=== PATIENT | male | born 1975 | race Hispanic/Latino ===

== ENCOUNTER 2017-11-18 11:34 | Emergency (ER) | payer SELFPAY ==
[2017-11-18] MEDS ORDERED: ASPIRIN 81 MG CHEWABLE TABLET ONE (14:35)
[2017-11-18] MEDS ORDERED: FAMOTIDINE 20 MG/2 ML VIAL IV ONE (14:36)
[2017-11-18] MEDS ORDERED: NA CHLORIDE 0.9% 1,000 ML ONE (14:36)
[2017-11-18] MEDS ORDERED: METOPROLOL TAR 50 MG TAB ONE (14:36)
[2017-11-18 15:21] LABS: Absolute Neutrophil 0.3 K/uL (1.8-8.0); Basophils % 1.5 % (0-1.3); Eosinophils % 0.4 % (0-4.4); Hematocrit 26.4 % (39.6-49.0); Lymphocytes % 91.5 % (15.3-44.8); MCV 91.7 fL (80-100); MPV 9.5 fL (7.6-11.3); Monocytes % 0.5 % (3.3-12.3); RBC Red Blood Cell Count 2.88 M/uL (4.33-5.43)
[2017-11-18 15:23] LABS: Protime INR 1.2
[2017-11-18] MEDS ORDERED: METOPROLOL TAR 25 MG TAB ONE (15:23)
[2017-11-18 15:25] LABS: Urine Blood TRACE (NEG); Urine Glucose NEGATIVE (NEG); Urine Protein TRACE (NEG); Urine Specific Gravity 1.025 (1.005-1.030)
[2017-11-18 15:29] LABS: Barbiturates NEGATIVE; Benzodiazepines NEGATIVE; Cocaine NEGATIVE; METHAMPHETAM NEGATIVE; Opiates NEGATIVE; Phencyclidine NEGATIVE; THC Cannibis NEGATIVE
[2017-11-18 15:40] LABS: Bicarbonate 25 mEq/L (21-31); Glucose Level 95 mg/dL (65-120); Lipase 18 U/L (22-51); Potassium 3.9 mEq/L (3.6-5.0); Sodium Level 139 mEq/L (135-145)
[2017-11-18 15:45] LABS: ALT/SGPT 30 IU/L (10-60); AST/SGOT 27 IU/L (10-42); Albumin 4.2 g/dL (3.2-5.5); Alkaline Phosphatase 93 IU/L (42-121); BUN Blood Urea Nitrogen 16 mg/dL (6-20); Bilirubin Total 0.8 mg/dL (0.3-1.2); CKMB Creatine Kinase MB 0.4 ng/ml (0.3-4.0); Creatine Phosphokinase 49 IU/L (22-269); Magnesium 1.9 mg/dL (1.8-2.5)
[2017-11-18 15:46] LABS: Bilirubin Direct 0.1 mg/dL (0-0.2)
[2017-11-18 15:47] LABS: Hematocrit 24.3 % (39.6-49.0); MCH 32.8 pg (27.0-35.0); MCV 92.7 fL (80-100); RBC Red Blood Cell Count 2.62 M/uL (4.33-5.43)
--- NOTE | 2017-11-18 15:47 | EKG ---
Test Date: 2017-11-18 Test Time: 14:55:40 Laboratory Mechanical Technician: PIPER MEASUREMENT RESULTS: Intervals: Rate: 86 RI: 146 QRSD: 88 QT: 362 QTc: 433 Howard: P: 45 RI: 146 QRS: -3 T: 20 INTERPRETIVE STATEMENTS: Normal sinus rhythm Normal ECG No previous ECG available for comparison Electronically Signed On 11-18-17 15:47:24 CDT by Mohinder Ramsey
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
[2017-11-18] MEDS ORDERED: THIAMINE 200 MG/2 ML INJ ONE (16:17)
[2017-11-18] MEDS ORDERED: PANTOPRAZOLE 40 MG INJ ONE (16:18)
--- NOTE | 2017-11-18 16:30 | RAD REPORT ---
EXAM DESCRIPTION: CT - Chest For Pe Angio - 11/18/2017 4:15 pm CLINICAL HISTORY: Chest pain. COMPARISON: None. TECHNIQUE: CT angiogram of the pulmonary arteries was performed with MIP. All CT scans are performed using dose optimization technique as appropriate and may include automated exposure control or mA/KV adjustment according to patient size. FINDINGS: No evidence of pulmonary thromboembolism. No acute aortic finding demonstrated. The lungs are clear. No significant pericardial or pleural fluid. No concerning bony finding. Mild hepatomegaly. IMPRESSION: No evidence of pulmonary thromboembolism. No acute lung findings.
[2017-11-18 16:33] LABS: Blood Morphology Comment NOT SEEN (NOT SEEN); Platelet Estimate DECR
--- NOTE | 2017-11-18 18:32 | RAD REPORT ---
EXAM DESCRIPTION: Valarie Single View11/18/2017 2:49 pm CLINICAL HISTORY: Chest pain COMPARISON: none FINDINGS: The lungs appear clear of acute infiltrate. The heart is normal size IMPRESSION: No acute abnormalities displayed
[2017-11-23 14:50] LABS: HBsAG Nonreactive (Nonreactive); Hepatitis A IgM Antibody Nonreactive
== END 2017-11-18 20:13 | disposition short-term general hospital (02) ==
LOC: ER 11:34
DX: D69.6 Thrombocytopenia, unspecified (principal); Z72.0 Tobacco use
CPT/HCPCS: 36415; 71045; 71275; 80048; 80074; 80076; 80307; 81003; 82550; 82553; 83690; 83735; 83880; 84484; 85025; 85027; 85379; 85610; 85730; 93005; 96361; 96365; 96375; 99285; C9113; J3411; J7030; Q9967